=== PATIENT | male | born 1975 | race Caucasian/White ===

== ENCOUNTER 2017-06-03 13:19 | Emergency (ER) | payer MEDICAID, SELFPAY ==
[2017-06-03 13:20] VITALS: BP 142/87; PULSE 88; RESP 14; TEMP 36.2; O2SAT 99; BMI 29.9
--- NOTE | 2017-06-03 13:44 | ED.VISSUMM ---
- ER Visit Summary Date of Service: 06/03/17 Chief Complaint: Back pain History of Present Illness: The patient is a 41 M presenting with back pain. He states that approximately a week before May 23 he fell down the steps while moving a washer and dryer. This was not work-related. He did not hit his head or lose consciousness. He went to the [facility] ED on May 23. He states he had x-rays performed which were unremarkable. He has been seen at urgent care with no relief. He states he is taking ibuprofen and Tylenol at home. He went to urgent care again today and was given a prescription for Flexeril. He states that he is allergic to Flexeril. He has an appointment scheduled with [facility] on June 21. He denies bowel or bladder incontinence. No numbness or weakness. He is able to ambulate. Denies fever. Physical Examination: Vitals are stable. Patient is afebrile. Alert no acute distress. HEENT exam is unremarkable. Neck is left paraspinal muscle tenderness, no midline tenderness Lungs are clear and equal bilaterally. Heart is regular rate and rhythm. Abdomen is soft nontender nondistended. Back: Left paraspinal muscle tenderness thoracic and lumbar spine. Extremities are unremarkable. Skin is warm and dry. No focal neurologic deficit. Normal strength and sensation Remainder of exam is unremarkable. Emergency Department Course and Treatment: Patient was given Toradol IM. X-ray report was obtained from [facility] and was unremarkable. He is given prescription for Norflex and advised to continue ibuprofen. Advised return to ED if worsening complaints. Disposition: Discharge home Impression: Back strain This note was generated with [employer] dictation software. It may contain incorrect words, spelling, and punctuation that were not noted in review of the chart prior to signing ED Disposition - Plan for ED Patient: Disposition: Home or Assisted Living Chief Complaint: Back Instructions: ED Sprain Strain Lumbar Prescriptions: Orphenadrine [Norflex ER] 100 mg PO BID PRN #14 tablet PRN Reason: Pain Referrals: Yamil Marquez MD [STAFF PHYSICIAN] - Care Physician,No Primary [Primary Care Provider] -
--- NOTE | 2017-06-03 13:47 | ED.DCSUM_ITS ---
- ER Visit Summary Date of Service: 06/03/17 Chief Complaint: Back pain History of Present Illness: The patient is a 41 M presenting with back pain. He states that approximately a week before May 23 he fell down the steps while moving a washer and dryer. This was not work-related. He did not hit his head or lose consciousness. He went to the [facility] ED on May 23. He states he had x-rays performed which were unremarkable. He has been seen at urgent care with no relief. He states he is taking ibuprofen and Tylenol at home. He went to urgent care again today and was given a prescription for Flexeril. He states that he is allergic to Flexeril. He has an appointment scheduled with [facility] on June 21. He denies bowel or bladder incontinence. No numbness or weakness. He is able to ambulate. Denies fever. Physical Examination: Vitals are stable. Patient is afebrile. Alert no acute distress. HEENT exam is unremarkable. Neck is left paraspinal muscle tenderness, no midline tenderness Lungs are clear and equal bilaterally. Heart is regular rate and rhythm. Abdomen is soft nontender nondistended. Back: Left paraspinal muscle tenderness thoracic and lumbar spine. Extremities are unremarkable. Skin is warm and dry. No focal neurologic deficit. Normal strength and sensation Remainder of exam is unremarkable. Emergency Department Course and Treatment: Patient was given Toradol IM. X-ray report was obtained from [place] and was unremarkable. He is given prescription for Norflex and advised to continue ibuprofen. Advised return to ED if worsening complaints. Disposition: Discharge home Impression: Back strain This note was generated with [employer] dictation software. It may contain incorrect words, spelling, and punctuation that were not noted in review of the chart prior to signing ED Disposition - Plan for ED Patient: Disposition: Home or Assisted Living Chief Complaint: Back Instructions: ED Sprain Strain Lumbar Prescriptions: Orphenadrine [Norflex ER] 100 mg PO BID PRN #14 tablet PRN Reason: Pain Referrals: Yamil Marquez MD [STAFF PHYSICIAN] - Care Physician,No Primary [Primary Care Provider] -
[2017-06-03] MEDS: Ketorolac 60 MG/2 ML Vial IM (14:13)
--- NOTE | 2017-06-03 15:50 | ED.DEP ---
ED Disposition - Plan for ED Patient: Chief Complaint: Back Instructions: ED Sprain Strain Lumbar Prescriptions: Orphenadrine [Norflex ER] 100 mg PO BID PRN #14 tablet PRN Reason: Pain Referrals: Care Physician,No Primary [Primary Care Provider] - Yamil Marquez MD [STAFF PHYSICIAN] -
[2017-06-03 16:13] VITALS: RESP 18
== END 2017-06-03 16:13 | disposition home or self-care (01) ==
LOC: ED 14:03
PROVIDERS: Emergency Provider Emergency Medicine
DX: S29.012A Strain of muscle and tendon of back wall of thorax, initial encounter (principal); S39.012A Strain of muscle, fascia and tendon of lower back, initial encounter; W10.9XXA Fall (on) (from) unspecified stairs and steps, initial encounter; Y93.9 Activity, unspecified; Y92.9 Unspecified place or not applicable; Z72.0 Tobacco use
CPT/HCPCS: 96372; 99282

== ENCOUNTER → 2017-06-17 11:02 | Outpatient (CLI) | payer MEDICAID, SELFPAY ==
--- NOTE | 2017-06-17 11:07 | RAD_ITS ---
STUDY: X-RAY - LUMBAR SPINE REASON FOR EXAM: Male, 41 years old. Low back pain TECHNIQUE: Single AP view(s) of the lumbar spine were obtained. COMPARISON: None FINDINGS: Normal lumbar lordosis. There is a levoscoliosis of the lumbar spine. There is a normal alignment of the vertebrae. Normal vertebral bodies and endplates. Normal disc space heights. The soft tissue structures are unremarkable. RAD/Lumbar Spine 2 or 3 Views IMPRESSION: Levoscoliosis, no demonstrated fracture or aggressive osseous lesion Electronically Signed: Reji Carter MD at 7:46 EDT , Service support ,
--- NOTE | 2017-06-17 11:11 | RAD_ITS ---
STUDY: XR SPINE ENTIRE THORACIC T LUMBAR (W SKULL, CERVICAL AND SACRAL SPINE IF PERFORMED) REASON FOR EXAM: Male, 41 years old. PT WITH LOW BACK PAIN, HAS SCOLIOSIS. TECHNIQUE: Radiological exam, spine, entire thoracic and lumbar, including skull, cervical and sacral spine if performed (eg, scoliosis evaluation); 1 view COMPARISON: None. FINDINGS: There is moderate dextroscoliosis of the thoracic spine. There is moderate levoscoliosis of the lumbar spine. There is mild multilevel degenerative endplate spondylosis and disc space narrowing. RAD/Scoliosis 1 view IMPRESSION: Moderate S-shaped scoliosis. No segmentation / fusion anomaly (SFA). Electronically Signed: Glenroy Garcia MD at 10:47 EDT Tel , Service support ,
[2017-06-17 11:19] LABS: Bacteria 0 SEEN /hpf (None Seen); Mucous, Urine 0 SEEN /hpf (<or=2+); Red Blood Cells-Urine 0 SEEN /hpf (0-5); White Blood Cells 0 SEEN /hpf (0-5)
[2017-06-17 13:48] LABS: Absolute Lymphocyte Count 1.95 X10^3/ul (0.83-4.51); Absolute Neutrophil Count 2.4 X10^3/uL (2.0-7.7); Basophil# 0.04 X10^3/uL; Basophil% 0.8 % (0-1); Eosinophil# 0.23 X10^3/uL; Eosinophils% 4.3 % (0-5); Hematocrit 44.3 % (40-54); Hemoglobin 15.9 g/dl (13.0-16.5); Lymphocyte # 1.95 X10^3/ul (4.0); Lymphocyte % 36.7 % (19-41); Mean Corp Hgb Conc 35.9 g/gl (32-36); Mean Corpuscular Hgb 31.7 pg (27.0-32.0); Mean Corpuscular Volume 88.2 fL (80-94); Mean Platelet Vol. 10.2 fl (6.2-12.0); Monocyte# 0.64 X10^3/uL; Monocyte% 12.1 % (0-10); Neutrophil # 2.44 X10^3/uL (2.7-7.7); Neutrophil % 45.9 % (47-70); POSITIVE COUNT NO; POSITIVE DIFFERENTIAL NO; POSITIVE MORPHOLOGY NO; Platelet Count 261 K/mm3 (150-450); RBC Distribution Width CV 12.6 % (11.6-14.6); RBC Distribution Width SD 40.9 fl (35.1-43.9); Red Blood Count 5.02 M/mm3 (4.6-6.2); White Blood Count 5.3 K/mm3 (4.4-11.0)
[2017-06-17 13:58] LABS: Color, Urine Yellow (Yellow); Glucose, Dipstick Normal (Normal); Ketone-Dipstick Negative (Negative); Leukocyte Esterase-Dipstick Negative /ul (Negative); Nitrite-Dipstick Negative (Negative); Occult Blood-Urine Negative /ul (Negative); Protein-Dipstick Negative (Negative); Specific Gravity, Urine 1.015 (1.002-1.030); Urine Bilirubin Dipstick Negative (Negative); Urine Clarity Clear (Clear); Urine Urobilinogen Normal (Normal)
[2017-06-17 14:06] LABS: Squamous Epithelial Cells - UA 0-5 SEEN /hpf (0-5)
[2017-06-17 14:18] LABS: AST(SGOT) 25 U/L (15-37); Alanine Aminotransfer ALT/SGPT 40 U/L (16-61); Albumin, Serum 3.9 g/dL (3.2-5.0); Alkaline Phosphatase 76 U/L (45-117); Anion Gap 7 (5-15); BUN 18 mg/dL (7-18); BUN/Creat Ratio 20.2 RATIO (10-20); Chloride 101 mmol/L (98-107); Creatinine, Serum 0.89 mg/dL (0.70-1.30); EST Glomerular Filtration Rate 101 mL/min (>60); Est Glom Filt Rate - Afr Amer 122 mL/min (>60); Globulin 4.1 g/dL (2.2-4.2); Glucose 86 mg/dL (74-106); Potassium 3.9 mmol/L (3.5-5.1); Sodium Level 137 mmol/L (136-145)
== END ==
PROVIDERS: Visit Provider Family Medicine
DX: M41.9 Scoliosis, unspecified (principal); M54.9 Dorsalgia, unspecified; Z72.0 Tobacco use
CPT/HCPCS: 72081; 72100; 72110; 80053; 81001; 85025

== ENCOUNTER 2018-02-16 18:23 | Emergency (ER) | payer MEDICAID, SELFPAY ==
[2018-02-16 18:25] VITALS: BP 123/74; PULSE 110; RESP 18; TEMP 36.8; O2SAT 96; BMI 31.2
--- NOTE | 2018-02-16 19:05 | RAD_ITS ---
STUDY: X-RAY - LEFT HAND REASON FOR EXAM: Male, 42 years old. Puncture wound with drill at base of the first metatarsal. TECHNIQUE: 3 view(s) of the hand. COMPARISON: None. FINDINGS: Normal radiocarpal articulation. Normal distal radioulnar joint. Normal visualized carpal bones. Normal carpal articulations Normal carpometacarpal articulation of the thumb. Normal second through fifth carpometacarpal joints. Normal metacarpi. Normal metacarpophalangeal joint of the thumb. Normal interphalangeal joint of the thumb. Normal proximal and distal phalanges of the thumb. Normal metacarpophalangeal joints of the second through fifth fingers. Normal proximal and distal interphalangeal joints of the second through fifth fingers. Normal phalanges of the second through fifth fingers. There is soft tissue prominence of the thenar eminence without opaque filling defect. RAD/Hand Min 3 Views IMPRESSION: Soft tissue swelling of the lateral hand without foreign body. There is no osseous or articular abnormality. Electronically Signed: Salazar Bragg DO at 19:25 EST Tel [phone], Service support ,
[2018-02-16] MEDS: HYDROcodone Bitartrate/Apap 5/325 Tablet PO (19:11)
--- NOTE | 2018-02-16 19:12 | ED.VISSUMM ---
- ER Visit Summary Date of Service: 02/16/18 Chief Complaint: Left hand puncture wound History of Present Illness: The patient is a 42 M presenting with puncture wound to left hand. Patient was using a drill and slipped and punctured his left hand. This occurred 2 hours prior to arrival. He states the entire drill bit was removed. He was having trouble getting the bleeding to stop. His tetanus is up-to-date. No other injuries. Physical Examination: Vitals are stable. Patient is afebrile. Alert no acute distress. HEENT exam is unremarkable. Neck is supple. Lungs are clear and equal bilaterally. Heart is regular rate and rhythm. Extremities left hand puncture thenar eminence. Normal pulses and cap refill. Active full range of motion. No active bleeding. Skin is warm and dry. No focal neurologic deficit. Remainder of exam is unremarkable. Emergency Department Course and Treatment: Wound was irrigated and dressed. Left hand x-ray shows soft tissue swelling of the lateral hand without foreign body. There is no osseous or articular abnormality. He was given [place] x1. He was given Keflex and a prescription for Keflex. Advised to follow-up with Dr Lamas sr risk management consultant for no doc. Advised return to ED for worsening complaints. Disposition: Discharge home Impression: Puncture wound left hand This note was generated with [employer] dictation software. It may contain incorrect words, spelling, and punctuation that were not noted in review of the chart prior to signing ED Disposition - Plan for ED Patient: Chief Complaint: Upper Extremity Injury Referrals: NOT,DEFINED [NON-STAFF] -
--- NOTE | 2018-02-16 19:15 | ED.DCSUM_ITS ---
- ER Visit Summary Date of Service: 02/16/18 Chief Complaint: Left hand puncture wound History of Present Illness: The patient is a 42 M presenting with puncture wound to left hand. Patient was using a drill and slipped and punctured his left hand. This occurred 2 hours prior to arrival. He states the entire drill bit was removed. He was having trouble getting the bleeding to stop. His tetanus is up-to-date. No other injuries. Physical Examination: Vitals are stable. Patient is afebrile. Alert no acute distress. HEENT exam is unremarkable. Neck is supple. Lungs are clear and equal bilaterally. Heart is regular rate and rhythm. Extremities left hand puncture thenar eminence. Normal pulses and cap refill. Active full range of motion. No active bleeding. Skin is warm and dry. No focal neurologic deficit. Remainder of exam is unremarkable. Emergency Department Course and Treatment: Wound was irrigated and dressed. Left hand x-ray shows soft tissue swelling of the lateral hand without foreign body. There is no osseous or articular abnormality. He was given [place] x1. He was given Keflex and a prescription for Keflex. Advised to follow-up with Dr Lamas prison classification counselor for no doc. Advised return to ED for worsening complaints. Disposition: Discharge home Impression: Puncture wound left hand This note was generated with [employer] dictation software. It may contain incorrect words, spelling, and punctuation that were not noted in review of the chart prior to signing ED Disposition - Plan for ED Patient: Chief Complaint: Upper Extremity Injury Referrals: NOT,DEFINED [NON-STAFF] -
--- NOTE | 2018-02-16 20:10 | ED.DEP ---
ED Disposition - Plan for ED Patient: Chief Complaint: Upper Extremity Injury Instructions: ED Wound Puncture General Prescriptions: Cephalexin [Keflex] 500 mg PO Q6 #40 capsule Referrals: Karel Lamas DO [NON CLINICAL AFFILIATE] -
[2018-02-16 20:11] VITALS: PULSE 88; RESP 16
[2018-02-16] MEDS: Cephalexin 250 MG Capsule 500 MG PO (20:23)
== END 2018-02-16 20:24 | disposition home or self-care (01) ==
LOC: ED 19:20
PROVIDERS: Emergency Provider Emergency Medicine; Family Provider Family Medicine; PCP Family Medicine
DX: S61.432A Puncture wound without foreign body of left hand, initial encounter (principal); W29.8XXA Contact with other powered hand tools and household machinery, initial encounter; Y93.9 Activity, unspecified; Y92.9 Unspecified place or not applicable
CPT/HCPCS: 73130; 99283

== ENCOUNTER → 2018-06-13 12:34 | Outpatient (CLI) | payer MEDICAID, SELFPAY ==
[2018-06-13 14:08] LABS: Thyroid Stim Hormone (TSH) 1.62 uIU/mL (0.358-3.74)
== END ==
PROVIDERS: Family Provider Family Medicine; PCP Family Medicine; Referring Provider Family Medicine; Visit Provider Family Medicine
DX: F41.9 Anxiety disorder, unspecified (principal); F32.9 Major depressive disorder, single episode, unspecified
CPT/HCPCS: 36415; 84443

== ENCOUNTER 2020-09-10 14:26 | Emergency (ER) | payer MEDICAID, SELFPAY ==
[2020-09-10 14:27] VITALS: BP 125/68; PULSE 98; RESP 16; TEMP 36.5; O2SAT 98; BMI 28.7
--- NOTE | 2020-09-10 16:26 | EX.ED.DYSGE1 ---
HPI History of Present Illness Chief Complaint: General Illness Onset/Context/Timing Onset: Today Timing: Continuous Narrative Narrative: Patient presents with Covid exposure. Patient states his grandfather has been hospitalized in the ICU with COVID-19. Patient states he was told by his doctor to come get checked for COVID-19 because he was exposed. Patient denies any difficulty breathing. Patient denies any cough. Patient denies any fevers or chills. Patient denies any nausea or vomiting. Patient denies any other symptoms. Prior similar symptoms: No PFSH PFSH Medical History Depression Home Medications orphenadrine citrate 100 mg PO BID PRN #14 tablet 06/03/17 [Rx Last Taken Unknown] cephalexin 500 mg PO Q6 #40 capsule 02/16/18 [Rx Last Taken Unknown] Allergy/AdvReac Type Severity Reaction Status Date / Time cyclobenzaprine Allergy Pain in Verified 09/10/20 14:27 [From Flexeril] joints Social History Smoking Status: Current every day smoker tobacco type: cigarettes ROS ROS ED Constitutional Constitutional ED: Denies chills or fever(s) Eyes Eyes: Denies blurry vision or change in vision ENT ENT ED: Denies rhinorrhea or sore throat Cardiovascular Cardiovascular: Denies chest pain or palpitations Respiratory/Chest Respiratory/Chest: Denies cough or dyspnea Gastrointestinal Gastrointestinal: Denies nausea or vomiting Genitourinary Genitourinary ED: Denies dysuria or hematuria Musculoskeletal Musculoskeletal: Denies back pain or neck pain Integumentary Denies abscess or rash Neurologic Neurologic: Denies headache(s) or weakness Allergic/Immunologic Allergic/Immunologic ED: Denies mouth swelling or urticaria EXAM Physical Exam Const Vital Signs: 09/10/20 14:27 09/10/20 15:03 Temperature 97.7 F L Temperature Source Temporal Pulse Rate 98 Respiratory Rate 16 Respiratory Effort Normal Non-Labored Blood Pressure 125/68 H Blood Pressure Mean 87 Pulse Ox 98 Oxygen Delivery Method Room Air Positive well nourished and well developed General Appearance ED: well developed HEENT Reports moist mucous membranes Neck supple and no JVD Resp normal respiratory effort and clear to auscultation bilaterally Cardio regular rate, regular rhythm and no murmurs GI normal to inspection, nondistended, normoactive bowel sounds and non-tender Palpation: soft Neuro oriented x3, CN's II-XII intact bilaterally and no sensory deficits noted Sensorium / Orientation: alert Motor Exam: strength 5/5 throughout Psych mental status grossly normal Skin no rashes or lesions noted Discharge Plan Triage Chief Complaint: General Illness ED Provider: Yamil Davis Dx/Rx/DC Orders Clinical Impression: Exposure to COVID-19 virus Instructions: Coronavirus Disease 2019 (COVID-19): Prevention Prescriptions: No Action orphenadrine citrate 100 MG tablet 100 mg PO BID PRN (Reason: Pain) Qty: 14 RF: 0 cephalexin 500 MG capsule 500 mg PO Q6 Qty: 40 RF: 0 Primary Care Provider: Yamil Marquez Referrals: Yamil Marquez MD [Primary Care Provider] - 5-7 Days Disposition Disposition: Home, self care
== END 2020-09-10 16:33 | disposition home or self-care (01) ==
PROVIDERS: Emergency Provider Emergency Medicine; PCP Family Medicine
DX: Z20.822 Contact with and (suspected) exposure to COVID-19 (principal); F32.9 Major depressive disorder, single episode, unspecified; Z79.899 Other long term (current) drug therapy; F17.210 Nicotine dependence, cigarettes, uncomplicated
CPT/HCPCS: 87426; 99282